=== PATIENT | male | born 1995 | race Caucasian/White ===

== ENCOUNTER 2023-04-18 23:51 | Emergency (ER) | payer BC, SELFPAY ==
[2023-04-18 23:52] VITALS: BP 151/111; PULSE 106; RESP 18; TEMP 36.9; O2SAT 99; BMI 53.5
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
[2023-04-19] MEDS: Lidocaine 2% /Epi 1:100 (20ml) 20 ML VIAL INFILT (00:35)
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
== END 2023-04-19 01:52 | disposition home or self-care (01) ==
PROVIDERS: Emergency Provider Emergency Medicine; Visit Provider Emergency Medicine
DX: S01.81XA Laceration without foreign body of other part of head, initial encounter (principal); F17.290 Nicotine dependence, other tobacco product, uncomplicated; W50.0XXA Accidental hit or strike by another person, initial encounter
CPT/HCPCS: 12011; 99282